=== PATIENT | female | born 1985 | race Asian ===

== ENCOUNTER 2020-10-22 14:30 | Outpatient (CLI) | payer BC | END 2020-10-22 14:31 | disposition home or self-care (01) | LOC: CSHMAMMO 14:30 | PROVIDERS: ATTEND Family Medicine | DX: Z12.31 Encounter for screening mammogram for malignant neoplasm of breast (principal) | CPT/HCPCS: 77063; 77067 ==

== ENCOUNTER 2025-01-31 16:26 | Emergency (ER) | payer SELFPAY ==
[2025-01-31 17:30] LABS: #Basophils 0.03 10x3/uL (0.0-0.2); #Eosinophils 0.06 10x3/uL (0.0-0.5); #Monocytes 0.29 10x3/uL (0.0-1.1); #Neutrophils 8.81 10x3/uL (1.5-8.4); %Basophils 0.3 % (0.0-2.0); %Eosinophils 0.6 % (0.0-6.0); %Lymphocytes 10.7 % (18.0-47.0); %Monocytes 2.8 % (0.0-10.0); %Neutrophils 85.2 % (40.0-75.0); Hematocrit 37.0 % (34.9-44.5); Hemoglobin 11.5 g/dL (12.0-15.5); Mean Corpuscular Hemoglobin 24.6 pg (27.0-33.0); Mean Corpuscular Volume 79.1 fL (81.6-98.3); Platelet Count 229 10x3/uL (150-450); Red Blood Cell (RBC) Count 4.68 10x6/uL (3.90-5.03); White Blood Cell (WBC) Count 10.34 10x3/uL (3.5-10.5)
[2025-01-31 17:52] LABS: ALT (SGPT) 20 U/L (Less than 34); AST (SGOT) 16 U/L (11-34); Albumin 4.3 g/dL (3.1-4.5); Alkaline Phosphatase 62 U/L (40-110); Anion Gap 13 mmol/L (10-20); BUN (Urea Nitrogen) 13 mg/dL (7.0-18.7); Bilirubin, Total 0.8 mg/dL (0.3-1.2); Calc. Creatinine Clearance 0 mL/min (70-130); Calcium 9.5 mg/dL (7.8-10.44); Carbon Dioxide 23 mmol/L (22-29); Chloride 105 mmol/L (98-107); Globulin 3.6 g/dL (2.4-3.5); Glucose 146 mg/dL (70-105); Potassium 4.3 mmol/L (3.5-5.1); Sodium 137 mmol/L (136-145)
[2025-01-31 17:58] LABS: BHCG - Serum Negative (NEGATIVE); Pregs Control Background? CLEAR/WHITE (CLR/WHITE); Pregs Control Bar Appear? YES (CONTROL BAR)
[2025-01-31 17:58] LABS: Troponin I Less than 0.010 ng/mL (< 0.028)
== END 2025-01-31 18:35 | disposition home or self-care (01) ==
LOC: CSHERS 16:26
DX: R51.9 Headache, unspecified (principal); R11.0 Nausea; R29.700 NIHSS score 0
CPT/HCPCS: 36415; 70450; 71045; 80053; 84484; 84703; 85025; 93005